=== PATIENT | male | born 1985 | race Hispanic/Latino ===

== ENCOUNTER 2018-08-14 08:19 | Emergency (ER) | payer SELFPAY ==
[2018-08-14] MEDS ORDERED: NA CHLORIDE 0.9% 1,000 ML ONE (09:12)
[2018-08-14] MEDS ORDERED: KETOROLAC 30 MG/ML INJ ONE (09:12)
[2018-08-14] MEDS ORDERED: MORPHINE 4 MG/ML SYR ONE (09:12)
[2018-08-14] MEDS ORDERED: ONDANSETRON 4 MG/2 ML VIAL ONE (09:12)
[2018-08-14 09:27] LABS: Absolute Lymphocytes (CBC) 1.2 K/uL (0.7-4.9); Absolute Monocytes 0.7 K/uL (0.1-1.3); Absolute Neutrophil 10.2 K/uL (1.8-8.0); Basophils % 0.4 % (0-1.3); Hematocrit 43.6 % (39.6-49.0); Lymphocytes % 9.8 % (15.3-44.8); MCH 27.6 pg (27.0-35.0); MPV 8.8 fL (7.6-11.3); Monocytes % 5.4 % (3.3-12.3); RBC Red Blood Cell Count 5.32 M/uL (4.33-5.43)
--- NOTE | 2018-08-14 09:34 | RAD REPORT ---
EXAM DESCRIPTION: CT - Stone Protocol - 08/14/2018 9:18 am CLINICAL HISTORY: Abdominal pain. Right lower quadrant pain COMPARISON: None. TECHNIQUE: Computed axial tomography of the abdomen pelvis was obtained without oral or IV contrast. Lack of IV and oral contrast limits evaluation of solid organs, bowel, and vessels. Coronal reformat flash images were obtained and reviewed. All CT scans are performed using dose optimization technique as appropriate and may include automated exposure control or mA/KV adjustment according to patient size. FINDINGS: A left renal calculus is not seen Several small right renal calculi. Mild right hydronephrosis. 2 millimeter calculus right ureterovesi antonia junction The liver, spleen, pancreas and adrenals appear grossly normal There is no evidence of diverticulitis. The appendix appears normal Small inguinal hernias contain fat IMPRESSION: 2 millimeter calculus right ureterovesical junction with mild right hydronephrosis
[2018-08-14] MEDS ORDERED: CEFTRIAXONE/SWI 1gm 1 GM/10 ML SYR ONE (09:37)
[2018-08-14 09:41] LABS: Urine Blood 3+ (NEG); Urine Glucose NEGATIVE (NEG); Urine Protein 1+ (NEG); Urine pH 8.5 (5.0-7.0)
--- NOTE | 2018-08-14 09:41 | EDPHYS ---
Physician Documentation [facility] Name: Massimo Bettencourt Age: 33 yrs Sex: Male : 1985 Arrival Date: 08/14/2018 Time: 08:23 Bed 18 Private MD: None, None ED Physician Lincoln Guzman HPI: 08/14 08:54 This 33 yrs old Male presents to ER via Ambulatory with complaints of klarissa Abdominal Pain, Testicular Pain, Urinary Problem. 08:54 The patient presents with flank pain, of the right mid back and right low back. Onset: klarissa The symptoms/episode began/occurred 1 day(s) ago. Modifying factors: The symptoms are alleviated by nothing, the symptoms are aggravated by nothing. Associated signs and symptoms: The patient has no apparent associated signs or symptoms. Severity of symptoms: At their worst the symptoms were mild, in the emergency department the symptoms are unchanged. The patient has not experienced similar symptoms in the past. Historical: - Allergies: 08:40 No Known Allergies; aa5 - Home Meds: 08:40 None [Active]; aa5 - PMHx: 08:40 Migraines; Kidney stones; aa5 - PSHx: 08:40 None; aa5 - Immunization history:: Adult Immunizations unknown. - Social history:: Smoking status: Patient/guardian denies using tobacco. - Ebola Screening: : No symptoms or risks identified at this time. - Family history:: not pertinent. ROS: 08:54 Constitutional: Negative for fever, chills, and weight loss, Eyes: Negative for injury, klarissa pain, redness, and discharge, ENT: Negative for injury, pain, and discharge, Neck: Negative for injury, pain, and swelling, Cardiovascular: Negative for chest pain, palpitations, and edema, Respiratory: Negative for shortness of breath, cough, wheezing, and pleuritic chest pain, : Negative for injury, bleeding, discharge, and swelling, MS/Extremity: Negative for injury and deformity, Skin: Negative for injury, rash, and discoloration, Neuro: Negative for headache, weakness, numbness, tingling, and seizure, Psych: Negative for depression, anxiety, suicide ideation, homicidal ideation, and hallucinations, Allergy/Immunology: Negative for hives, rash, and allergies, Endocrine: Negative for neck swelling, polydipsia, polyuria, polyphagia, and marked weight changes, Hematologic/Lymphatic: Negative for swollen nodes, abnormal bleeding, and unusual bruising. 08:54 Abdomen/GI: Positive for abdominal pain, nausea, vomiting, of the anterior aspect of right lateral abdomen, posterior aspect of right lateral abdomen, right upper quadrant and right lower quadrant. Exam: 08:54 Constitutional: This is a well developed, well nourished patient who is awake, alert, klarissa and in no acute distress. Head/Face: Normocephalic, atraumatic. Eyes: Pupils equal round and reactive to light, extra-ocular motions intact. Lids and lashes normal. Conjunctiva and sclera are non-icteric and not injected. Cornea within normal limits. Periorbital areas with no swelling, redness, or edema. ENT: Nares patent. No nasal discharge, no septal abnormalities noted. Tympanic membranes are normal and external auditory canals are clear. Oropharynx with no redness, swelling, or masses, exudates, or evidence of obstruction, uvula midline. Mucous membranes moist. Neck: Trachea midline, no thyromegaly or masses palpated, and no cervical lymphadenopathy. Supple, full range of motion without nuchal rigidity, or vertebral point tenderness. No Meningismus. Chest/axilla: Normal chest wall appearance and motion. Nontender with no deformity. No lesions are appreciated. Cardiovascular: Regular rate and rhythm with a normal S1 and S2. No gallops, murmurs, or rubs. Normal PMI, no JVD. No pulse deficits. Respiratory: Lungs have equal breath sounds bilaterally, clear to auscultation and percussion. No rales, rhonchi or wheezes noted. No increased work of breathing, no retractions or nasal flaring. Back: No spinal tenderness. No costovertebral tenderness. Full range of motion. Male : Normal genitalia with no discharge or lesions. Skin: Warm, dry with normal turgor. Normal color with no rashes, no lesions, and no evidence of cellulitis. MS/ Extremity: Pulses equal, no cyanosis. Neurovascular intact. Full, normal range of motion. Neuro: Awake and alert, GCS 15, oriented to person, place, time, and situation. Cranial nerves II-XII grossly intact. Motor strength 5/5 in all extremities. Sensory grossly intact. Cerebellar exam normal. Normal gait. Psych: Awake, alert, with orientation to person, place and time. Behavior, mood, and affect are within normal limits. 08:54 Abdomen/GI: Inspection: abdomen appears normal, Bowel sounds: normal, Palpation: moderate abdominal tenderness, in the right upper quadrant and right lower quadrant, Liver: no appreciated palpable abnormalities, Hernia: not appreciated. Vital Signs: 08:42 BP 152 / 92; Pulse 75; Resp 18 S; Temp 97.7(O); Pulse Ox 95% on R/A; Weight 136.08 kg aa5 (R); Height 5 ft. 11 in. (180.34 cm) (R); Pain 10/10; 09:44 BP 150 / 89; Pulse 74; Resp 18; Pulse Ox 100% on R/A; hj 08:42 Body Mass Index 41.84 (136.08 kg, 180.34 cm) aa5 MDM: 08:39 Patient medically screened. [facility] 08:58 Data reviewed: vital signs, nurses notes, lab test result(s), radiologic studies, CT klarissa scan. 08/14 08:53 Order name: Basic Metabolic Panel [facility] 08/14 08:53 Order name: CBC with Diff; Complete Time: 09:[address] [facility] 08/14 08:53 Order name: Creatinine for Radiology [facility] 08/14 08:53 Order name: Hepatic Function [facility] 08/14 08:53 Order name: Lipase [facility] 08/14 08:53 Order name: Urine Culture [facility] 08/14 08:53 Order name: IV Saline Lock; Complete Time: 08:[address] [facility] 08/14 08:53 Order name: CT Stone Protocol; Complete Time: 09:[address] [facility] 08/14 09:28 Order name: Urine Dipstick--Ancillary (enter results) 08/14 08:53 Order name: Labs collected and sent; Complete Time: 08:[address] [facility] 08/14 08:53 Order name: Urine Dipstick-Ancillary (obtain specimen); Complete Time: 08:[address] [facility] Administered Medications: 09:10 Drug: NS 0.9% 1000 ml Route: IV; Rate: 1 bolus; Site: right hand; hj 09:10 Drug: TORadol 30 mg Route: IVP; Site: right hand; hj 09:38 Follow up: Response: No adverse reaction; Pain is decreased hj 09:10 Drug: morphine 4 mg Route: IVP; Site: right hand; hj 09:38 Follow up: Response: No adverse reaction; Pain is decreased 09:10 Drug: Zofran 4 mg Route: IVP; Site: right hand; 09:38 Follow up: Response: No adverse reaction; Nausea is decreased 09:12 Drug: Rocephin - (cefTRIAXone) 1 grams Route: IVPB; Infused Over: 30 mins; Site: right hand; Disposition: 08/14/18 09:40 Discharged to Home. Impression: Hydronephrosis with renal and ureteral calculous obstruction - 2 mm uvj. - Condition is Stable. - Discharge Instructions: Kidney Stones, Kidney Stones, [id number], Hydronephrosis, Dietary Guidelines to Help Prevent Kidney Stones. - Prescriptions for Tylenol- Codeine #3 300-30 mg Oral Tablet - take 2 tablet by ORAL route every 6 hours As needed; 30 tablet. Zofran 4 mg Oral Tablet - take 1 tablet by ORAL route every 12 hours As needed; 20 tablet. Flomax 0.4 mg Oral Capsule, Sust. Release 24 hr - take 1 capsule by ORAL route once daily 1/2 hour following the same meal each day; 30 capsule. Cipro 500 mg Oral Tablet - take 1 tablet by ORAL route every 12 hours for 7 days; 14 tablet. - Medication Reconciliation Form, Thank You Letter, Antibiotic Education, Prescription Opioid Use form. - Follow up: Private Physician; When: 2 - 3 days; Reason: Recheck today's complaints, Continuance of care, Re-evaluation by your physician. Follow up: Renan Abbott; When: 2 - 3 days; Reason: Recheck today's complaints, Re-evaluation by your physician. - Problem is new. - Symptoms have improved. Signatures: Dispatcher [employer] [facility] Lincoln Guzman MD MD cha Calderon, Audri, RN RN aa5 Jay Sutton RN RN hj Corrections: (The following items were deleted from the chart) 10:44 09:40 08/14/2018 09:40 Discharged to Home. Impression: Hydronephrosis with renal and hj ureteral calculous obstruction - 2 mm uvj. Condition is Stable. Discharge Instructions: Kidney Stones, Kidney Stones, [id number], Hydronephrosis, Dietary Guidelines to Help Prevent Kidney Stones. Prescriptions for Tylenol-Codeine #3 300-30 mg Oral Tablet - take 2 tablet by ORAL route every 6 hours As needed; 30 tablet, Zofran 4 mg Oral Tablet - take 1 tablet by ORAL route every 12 hours As needed; 20 tablet, Flomax 0.4 mg Oral Capsule, Sust. Release 24 hr - take 1 capsule by ORAL route once daily 1/2 hour following the same meal each day; 30 capsule, Cipro 500 mg Oral Tablet - take 1 tablet by ORAL route every 12 hours for 7 days; 14 tablet. and Forms are Medication Reconciliation Form, Thank You Letter, Antibiotic Education, Prescription Opioid Use. Follow up: Private Physician; When: 2 - 3 days; Reason: Recheck today's complaints, Continuance of care, Re-evaluation by your physician. Follow up: Renan Abbott; When: 2 - 3 days; Reason: Recheck today's complaints, Re-evaluation by your physician. Problem is new. Symptoms have improved. klarissa
--- NOTE | 2018-08-14 09:41 | ER ---
Nurse's Notes [facility] Name: Massimo Bettencourt Age: 33 yrs Sex: Male : 1985 Arrival Date: 08/14/2018 Time: 08:23 Bed 18 Private MD: None, None Diagnosis: Hydronephrosis with renal and ureteral calculous obstruction-2 mm uvj Presentation: 08/14 08:40 Presenting complaint: Patient states: RUQ, RLQ, and right testicular pain that began aa5 this morning. Pt states "when I pee I feel a lot of pressure and I only pee a little bit". Pt also reports nausea and vomiting. 08:40 Transition of care: patient was not received from another setting of care. Onset of aa5 symptoms was July 2018. Risk Assessment: Do you want to hurt yourself or someone else? Patient reports no desire to harm self or others. Initial Sepsis Screen: Does the patient meet any 2 criteria? No. Patient's initial sepsis screen is negative. Does the patient have a suspected source of infection? No. Patient's initial sepsis screen is negative. Care prior to arrival: None. 08:40 Method Of Arrival: Ambulatory aa5 08:40 Acuity: CASH 2 aa5 Triage Assessment: 08:40 General: Appears in no apparent distress. uncomfortable, obese, Behavior is hj cooperative, appropriate for age, crying. Pain: Complains of pain in right lower quadrant and right upper quadrant and posterior aspect of right lateral abdomen and anterior aspect of right lateral abdomen and right low back and right mid back. EENT: No signs and/or symptoms were reported regarding the EENT system. Neuro: Level of Consciousness is awake, alert, obeys commands, Oriented to person, place, time, situation, Appropriate for age. Cardiovascular: Capillary refill < 3 seconds Patient's skin is warm and dry. Respiratory: Airway is patent Respiratory effort is even, unlabored, Respiratory pattern is regular, symmetrical. GI: Reports lower abdominal pain, upper abdominal pain, nausea. : Reports Scrotal pain: sudden onset. Derm: No signs and/or symptoms reported regarding the dermatologic system. Historical: - Allergies: 08:40 No Known Allergies; aa5 - Home Meds: 08:40 None [Active]; aa5 - PMHx: 08:40 Migraines; Kidney stones; aa5 - PSHx: 08:40 None; aa5 - Immunization history:: Adult Immunizations unknown. - Social history:: Smoking status: Patient/guardian denies using tobacco. - Ebola Screening: : No symptoms or risks identified at this time. - Family history:: not pertinent. Screenin:40 Abuse screen: Denies threats or abuse. Denies injuries from another. Nutritional hj screening: No deficits noted. Tuberculosis screening: No symptoms or risk factors identified. Fall Risk None identified. Assessment: 08:40 GI: Bowel sounds present X 4 quads. Abd is soft Abdomen is tender to palpation. hj 08:40 Reassessment: Patient and/or family updated on plan of care and expected duration. Pain hj level reassessed. Patient is alert, oriented x 3, equal unlabored respirations, skin warm/dry/pink. see triage assessment;l. 09:44 Reassessment: Patient and/or family updated on plan of care and expected duration. Pain hj level reassessed. Patient is alert, oriented x 3, equal unlabored respirations, skin warm/dry/pink. for D/C after NS 1 L bolus is done; Patient states feeling better. Patient states symptoms have improved. Vital Signs: 08:42 BP 152 / 92; Pulse 75; Resp 18 S; Temp 97.7(O); Pulse Ox 95% on R/A; Weight 136.08 kg aa5 (R); Height 5 ft. 11 in. (180.34 cm) (R); Pain 10/10; 09:44 BP 150 / 89; Pulse 74; Resp 18; Pulse Ox 100% on R/A; hj 08:42 Body Mass Index 41.84 (136.08 kg, 180.34 cm) aa5 ED Course: 08:23 Patient arrived in ED. mr 08:24 None, None is Private Physician. mr 08:39 Jay Sutton, BRENT is Primary Nurse. hj 08:39 Lincoln Guzman MD is Attending Physician. [facility] 08:40 Arm band placed on Patient placed in an exam room, on a stretcher. aa5 08:40 Patient has correct armband on for positive identification. Placed in gown. Bed in low hj position. Call light in reach. Side rails up X 1. Adult w/ patient. 08:51 Triage completed. aa5 09:10 Initial lab(s) drawn, by me, sent to lab. Urine collected: clean catch specimen, blood hj tinged. Inserted saline lock: 22 gauge in right hand, using aseptic technique. Blood collected. 09:15 CT completed. Patient tolerated procedure well. Patient moved to CT via wheelchair. vr Patient moved back from CT. 09:19 CT Stone Protocol In Process Unspecified. EDFL 09:39 Renan Abbott MD is Referral Physician. [facility] Administered Medications: 09:10 Drug: NS 0.9% 1000 ml Route: IV; Rate: 1 bolus; Site: right hand; hj 09:10 Drug: TORadol 30 mg Route: IVP; Site: right hand; hj 09:38 Follow up: Response: No adverse reaction; Pain is decreased hj 09:10 Drug: morphine 4 mg Route: IVP; Site: right hand; hj 09:38 Follow up: Response: No adverse reaction; Pain is decreased hj 09:10 Drug: Zofran 4 mg Route: IVP; Site: right hand; hj 09:38 Follow up: Response: No adverse reaction; Nausea is decreased 09:12 Drug: Rocephin - (cefTRIAXone) 1 grams Route: IVPB; Infused Over: 30 mins; Site: right hj hand; Outcome: 09:40 Discharge ordered by . [facility] 10:44 Patient left the ED. Signatures: Dispatcher [employer] Lincoln Beaulieu MD MD cha Rivera, Mary mr ShahidAlyson, RN RN [place] Ibanez Henry, RN RN hj
[2018-08-14 09:46] LABS: Albumin 3.9 g/dL (3.4-5.0); Bilirubin Direct 0.2 mg/dL (0-0.2); Bilirubin Total 0.7 mg/dL (0.2-1.0); Protein, Total 8.4 g/dL (6.4-8.2)
== END 2018-08-14 10:44 | disposition home or self-care (01) ==
LOC: ER 08:19
DX: N13.2 Hydronephrosis with renal and ureteral calculous obstruction (principal)
CPT/HCPCS: 36415; 74176; 76377; 80048; 80076; 81003; 83690; 85025; 87086; 87088; 96374; 96375; 99284; J0696; J2405; J7030